=== PATIENT | female | born 1955 | race Two or more races ===

== ENCOUNTER 2023-03-08 05:53 | Outpatient (REF) | payer SELFPAY ==
[2023-03-08 06:00] LABS: MANUAL DIFF FLAG NO
[2023-03-08 06:29] LABS: Basophils Percent Auto 0.1 % (0-2); Eosinophils Absolute Auto 0.2 X10*3/uL (0.0-0.4); Hematocrit 31.8 % (37.0-47.0); Imm Gran Abs Auto 0.19 X10*3/uL (0.00-0.03); Imm Gran Pct Auto 2.4 % (0.0-0.4); Lymphocytes Absolute Auto 1.5 X10*3/uL (1.2-4.9); Lymphocytes Percent Auto 19.1 % (20-40); Mean Corpuscular HGB Conc 28.3 g/dl (31.0-35.0); Mean Corpuscular Hemoglobin 27.3 pg (27.0-33.0); Mean Corpuscular Volume 96.4 fL (80.0-98.0); Mean Platelet Volume 11.1 fL (9.4-12.3); Monocytes Absolute Auto 0.8 X10*3/uL (0.1-1.2); Monocytes Percent Auto 10.3 % (2-11); Neutrophils Absolute Auto 5.3 x10*3/uL (2.0-8.3); Neutrophils Percent Auto 66.1 % (45-73); Platelet Count 202 X10*3/uL (160-400); Red Cell Distribution Width 20.7 % (11.0-16.0)
[2023-03-08 06:37] LABS: NRBC Pct Auto 1.1 /100WBC (0.0-0.2)
[2023-03-08 06:48] LABS: Alanine Aminotransferase 28 U/L (0-31); Albumin Level 3.3 g/dL (3.5-5.0); Alkaline Phosphatase 119 U/L (39-117); Anion Gap 19 (12-20); Aspartate Amino Transferase 12 U/L (5-31); Bilirubin Total 0.4 mg/dL (0.0-1.0); Blood Urea Nitrogen 18 mg/dL (9-16); Calcium 8.9 mg/dL (8.4-10.2); Carbon Dioxide 41 mmol/L (22-29); Chloride 91 mmol/L (96-108); Estimated Glomerular Filt Rate > 60; Glucose Random 227 mg/dL (60-115); Potassium 3.2 mmol/L (3.3-5.1); Sodium 148 mmol/L (135-145); Total Protein 5.2 g/dL (6.5-8.0)
== END 2023-03-08 05:54 | disposition home or self-care (01) ==
LOC: HO.MMNH1L 05:53
PROVIDERS: Visit Provider Family Medicine
DX: E11.9 Type 2 diabetes mellitus without complications (principal); I50.9 Heart failure, unspecified; J96.90 Respiratory failure, unspecified, unspecified whether with hypoxia or hypercapnia
CPT/HCPCS: 36415; 80053; 85025